=== PATIENT | male | born 1965 | race Caucasian/White ===

== ENCOUNTER 2016-07-06 22:59 | Observation (INO) | payer SELFPAY ==
--- NOTE | ~2016-07-06 | HP ---
History And Physical [place] [address] [facility] [place]. [address] NAME: CASSIDY DUFF : 69 STATUS : ADM Alice PAT#: [id number] AGE: 50 ADM/REG DATE : 07/07/16 MR#: [id number] REPORT SERV DATE: 07/07/16 DICTATED BY: RULA PIERSON DATE: 07/07/16 REPORT STATUS : Draft TRANSCRIBED BY: MODSherlyn DATE: 07/07/16 DATE OF ADMISSION: 07/07/2016 PRIMARY CARE PROVIDER: None. MACHINE CLERICAL VERIFIER: Kristal Duke. CHIEF COMPLAINT: Chest pain. HISTORY OF PRESENT ILLNESS: Pleasant, 50-year-old, white male with known history of CAD, status post stent to an unknown vessel by Dr. Giraldo in 08/2015. Patient presents today stating that yesterday while up for work he was in his usual state of health but experienced a dull ache in his mid to left chest with some brief transient palpitations. He did not go to work yesterday. His family remained concerned and he came to the emergency room today for further evaluation. He reports some associated shortness of breath, diaphoresis, and dizziness and belching. Denies any nausea. At its most intense, the chest pain is rated as 7/10. At time of interview in the [facility], he rates it a 3/10. The episodes last "a couple of minutes." He reports these symptoms are somewhat similar to previous cardiac event, requiring a stent, but he took no medicines or intervention at home. He reports that he ran out of his nitroglycerin. He does have all of his other medicines and has not missed any doses. The patient confirms personal history of one heart attack. Denies history of stroke, DVT, or pulmonary embolus. The patient denies any recent fever or chills, no palpitations, no syncopal episodes. Denies PND or orthopnea. PAST MEDICAL HISTORY: 1. CAD. a. Status post MT. b. Stent to unknown vessel, 08/[address] Giraldo. 2. Hypertension. 3. Dyslipidemia. 4. Denies diabetes. 5. Known mild ascending aortic aneurysm, measuring 3.6 cm by MRA, 12/2015. 6. Tobacco abuse. SURGICAL HISTORY: Hernia repair and deviated septum. 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 Does not have an exercise routine. Quit smoking two weeks ago. Smokes one pack per day for 30 years. Occasionally consumes alcohol and occasionally smokes marijuana, most recently two days ago. FAMILY HISTORY: Early CAD. Mother of a heart attack at 56. REVIEW OF SYSTEMS: A 14-point review of systems performed, significant for HPI including snores per report. No History And Physical [address] [place]. [address] NAME: CASSIDY DUFF : 69 STATUS : ADM Alice PAT#: [id number] AGE: 50 ADM/REG DATE : 07/07/16 MR#: [id number] REPORT SERV DATE: 07/07/16 DICTATED BY: RULA PIERSON DATE: 07/07/16 REPORT STATUS : Draft TRANSCRIBED BY: JOSEPH DATE: 07/07/16 formal sleep study. Otherwise, complete review of systems obtained and negative. ALLERGIES: DEMEROL, HIVES AND RASH. HOME MEDICATIONS: Aspirin 325 daily, decreased to 81; atorvastatin 40 mg nightly; clopidogrel 75 mg daily; hydrochlorothiazide 25 mg daily; lisinopril 40 mg daily; metoprolol tartrate 50 mg twice daily; nitroglycerin sublingual. PHYSICAL EXAMINATION: VITAL SIGNS: Blood pressure 145/83, pulse 65, respirations 14, temperature 97.8, O2 saturation 95% on room air, height 5 feet 11 inches, weight 240 pounds, BMI 33.4. GENERAL: Cooperative, in no apparent distress. HEENT: Pupils 2 mm, sclera nonicteric. Nares patent. Moist mucous membranes. No xanthelasma. NECK: Trachea midline, no thyromegaly. No JVD. No bruits. LYMPH: No cervical lymphadenopathy. No supraclavicular lymphadenopathy. RESPIRATORY: Unlabored respirations. Breath sounds clear bilaterally to posterior auscultation. No wheezes or rhonchi. CARDIOVASCULAR: Regular rate. No murmur, rub or gallop appreciated. Extremities without edema. Pulses 2+ bilaterally. ABDOMEN: Obese, soft, nontender, nondistended, normal bowel sounds auscultated throughout. No organomegaly. SKIN: Warm, dry extremities. No pallor, or cyanosis. PSYCHIATRIC: Appropriate affect. Alert, oriented x3. LABORATORY DATA: Troponin less than 0.02 twice. Potassium 4.1, BUN 20, creatinine 1.23, glucose 97, magnesium 2.4. WBC 8.8, hemoglobin 15.4, hematocrit 44.5, and platelet count 213,000. EKG, sinus rhythm. Echo, 12/2015: EF 55-60. Mild diastolic dysfunction. MPI, 12/2015: Inferior infarct without ischemia. EF 48%. Cath, 11/2014: Mild CAD, EF 35%. Patent left and right renal arteries. CTA of chest, no PE. ASSESSMENT AND PLAN: 1. Chest pain in patient with multiple risk factors. He has been observed in the [facility] overnight to rule out myocardial infarction with serial enzymes and serial EKGs and held n.p.o. for stress test today. If nuclear stress test is negative, patient will be sent to home. To follow up with [facility] in one to two weeks with all studies being sent to that office. 2. Coronary artery disease. Continue home medications. 3. Hypertension. Monitor blood pressure. Continue home medications. History And Physical [address] [address] NAME: CASSIDY DUFF : 69 STATUS : ADM Alice PAT#: [id number] AGE: 50 ADM/REG DATE : 07/07/16 MR#: [id number] REPORT SERV DATE: 07/07/16 DICTATED BY: RULA PIERSON DATE: 07/07/16 REPORT STATUS : Draft TRANSCRIBED BY: JOSEPH DATE: 07/07/16 4. Dyslipidemia. Continue statin. 5. No nitroglycerin available. Script provided at discharge. 6. Tobacco abuse. Claims to have quit 2 weeks ago. Counseled regarding complete cessation from tobacco for cardiovascular health and well being. 7. No PCP. We will arrange followup at [facility]. The patient states he has not missed any of his medicines and has all scripts through 08/2016. The patient encouraged to not run out of strips and maintain relationship with PCP for further renewal of medications. MOMO/JOSEPH Rula Pierson, MSN, COMMUNITY OUTREACH MANAGER-BC / [id number] CC: Rula Pierson, MSN, COMMUNITY OUTREACH MANAGER-BC
[2016-07-06 22:13] LABS: BASOPHILS 0.9 %; BASOPHILS ABSOLUTE 0.08 10/3/uL (0.0-0.16); EOSINOPHILS 6.9 %; EOSINOPHILS ABSOLUTE 0.61 10/3/uL (0.0-0.53); ER CBC TAT 0 Hrs 07 Mins; HEMATOCRIT 44.5 % (40.0-51.0); HEMOGLOBIN 15.4 g/dL (13.6-17.8); IMMATURE GRANULOCYTES 0.2 %; IMMATURE GRANULOCYTES ABSOLUTE 0.02 10/3/uL (0.0-0.11); LYMPHOCYTES ABSOLUTE 3.07 10/3/uL (0.67-4.30); MANUAL DIFF NO %; MEAN CORPUS HGB CONC 34.6 g/dL (32.0-36.0); MEAN CORPUSCULAR HEMOGLOB 30.6 pg (26.0-34.0); MEAN CORPUSCULAR VOLUME 88.5 fL (80-100); MEAN PLATELET VOLUME 8.2 fL (9.2-13.0); MONOCYTES 6.4 %; MONOCYTES ABSOLUTE 0.56 10/3/uL (0.21-1.20); NEUTROPHILS 50.6 %; NEUTROPHILS ABSOLUTE 4.44 10/3/uL (2.02-8.40); PLATELET COUNT 213 10/3/uL (150-400); RBC DISTRIBUTION WIDTH 13.3 % (12.0-16.0); RED CELL COUNT 5.03 10/6/uL (4.7-6.1); WHITE BLOOD CELLS 8.8 10/3/uL (4.5-10.5)
[2016-07-06 22:20] LABS: INTERNATIONAL NORMAL RATI 0.9 UNITS (-); PARTIAL THROMBO TIME 28.2 SEC (22.5-37.2); PROTIME (NOT ORD) 12.4 SEC (12.0-14.5)
[2016-07-06 22:29] LABS: BUN (BLOOD UREA NITROGEN) 20 MG/DL (6-23); CHEST PAIN PROFILE TAT 0 Hrs 23 Mins; CHLORIDE, SERUM 104 MMOL/L (96-112); CO2 (CARBON DIOXIDE) 26 MMOL/L (24-34); CREATININE 1.23 MG/DL (0.70-1.30); GFR AFRICAN AMERICAN 80 ML/MIN (>=60); GFR NON AFRICAN AMERICAN 69 ML/MIN (>=60); GLUCOSE, SERUM 97 MG/DL (60-99); POTASSIUM, SERUM 4.1 MMOL/L (3.5-5.3); SODIUM, SERUM 141 MMOL/L (135-148); TROPONIN I <0.02 NG/ML (<0.05)
[~2016-07-06 22:59] MED LIST: ADVIL PO; ALEVE220 MG PO; ASA5GR PO; ASAB PO; ASABAYER PO; CENTRUM PO; COREG12 PO; COREG25 PO; CYANO1000T PO; DENIES HOME MEDS; HALF81 PO; HYDROCHLOROT25 MG PO; LIPITOR40 PO; LISINOPRIL40 MG PO; LOP50 PO; MULTIVITAMI1 PO; NASAL SPRAY OTC NAS; NITROSTAT0.4 MG SL; NORV10 PO; NORV5; NORV5 PO; OTC NASAL SPRAY NAS; PLAVIX PO; PRIN10 PO; PRIN20 PO
[2016-07-06] MEDS ORDERED: LOP50 PO (23:01)
[2016-07-06] MEDS ORDERED: LIPITOR40 PO (23:01)
[2016-07-08] MEDS ORDERED: IMDUR30 PO (11:38)
[2016-07-08] MEDS ORDERED: ZANTAC 150 PO (11:38)
[2016-11-06] MEDS ORDERED: CYANO1000T PO (18:33)
[2016-11-07] MEDS ORDERED: ASAB PO (12:17)
[2016-11-07] MEDS ORDERED: NITROSTAT0.4 MG SL (12:19)
== END 2016-07-08 12:00 | disposition home or self-care (01) ==
LOC: ER 22:59 → SSU1 07-07 01:48
PROVIDERS: Emergency Medicine
DX: R07.9 Chest pain, unspecified (principal); I25.10 Atherosclerotic heart disease of native coronary artery without angina pectoris; I10 Essential (primary) hypertension; E78.5 Hyperlipidemia, unspecified; I25.2 Old myocardial infarction; F17.200 Nicotine dependence, unspecified, uncomplicated; Z98.890 Other specified postprocedural states; Z88.5 Allergy status to narcotic agent; Z79.82 Long term (current) use of aspirin; Z79.02 Long term (current) use of antithrombotics/antiplatelets; Z79.899 Other long term (current) drug therapy
CPT/HCPCS: 71020; 71275; 78452; 80048; 83735; 84484; 85025; 85610; 85730; 93005; 93017; 93308; 96374; 96375; 96376; 99285; A9270-GY; A9502; G0378; J1170; J1200; J2405; Q9957; Q9967